=== PATIENT | female | born 1990 | race Caucasian/White ===

== ENCOUNTER 2020-02-25 07:00 | Outpatient (CLI) | payer MEDICAID ==
[2020-02-25 21:39] LABS: CANDIDA GROUP DNA NEGATIVE (NEGATIVE); CANDIDA KRUSEI DNA NEGATIVE (NEGATIVE); TRICHOMONAS VAGINALIS DNA NEGATIVE (NEGATIVE)
== END 2020-02-25 23:59 | disposition home or self-care (01) ==
LOC: LAB.R 07:00
PROVIDERS: ATTEND Physician Assistant Medical
DX: N76.0 Acute vaginitis (principal)
CPT/HCPCS: 87661; 87801

== ENCOUNTER 2020-04-01 21:47 | Outpatient (CLI) | payer MEDICAID | END 2020-04-01 21:48 | disposition home or self-care (01) | LOC: COV 21:47 | PROVIDERS: ATTEND Family Medicine | DX: R50.9 Fever, unspecified (principal); R53.83 Other fatigue; R07.0 Pain in throat; Z20.822 Contact with and (suspected) exposure to COVID-19 ==